=== PATIENT | male | born 1945 | race Caucasian/White ===

== ENCOUNTER → 2016-12-20 | Outpatient (CLI) | payer OTHER ==
--- NOTE | 2016-12-20 16:30 | MRI ---
History: Meniscus tear, right knee pain. Technique: Multiplanar, multi sequence MR imaging of the right knee was performed without contrast. Comparison: Radiographs of the right knee dated 07/08/2016. Findings: The anterior cruciate ligament is intact. There is thickening of the posterior cruciate ligament mid portion as seen on sagittal PD fat sat image 19, with intermediate signal compatible with a chronic sprain. There is an undersurface flap tear involving the medial meniscus at the posterior horn/body junction extending into the posterior horn. There is increased signal within the posterior horn lateral meniscus which is likely degenerative si gnal. There is thickening of the proximal aspect of the MCL measuring 11 mm transverse with mixed intermed iate signal which corresponds to ossification seen on the prior radiographs compatible with a chroni c high-grade MCL tear with Lisa-Stieda lesion and scarring. The iliotibial band is intact. The fibular collateral ligament and biceps femoris tendons are intact . There is a ganglion cyst which appears to be within layers of the lateral retinacula as seen on ax ial T2 fat sat image 13, series 401 where it measures up to 4.6 cm in AP dimension and 5 mm thicknes s by 4.5 cm craniocaudal seen on coronal PD fat sat image 15. This cyst extends inferiorly in along the superficial aspect of the fibular collateral ligament where it measured 2.1 cm AP by 6 mm in thi ckness by 4.6 cm craniocaudal there is mild edema along its posterior aspect tracking distally. The tendons of the gastrocnemius, seem urine oasis, and pes anserinus appear intact. There is severe osteoarthrosis of the tibia fibular articulation, with a ganglion cyst along its pos terior medial margin measuring 1.9 x 1.8 cm. The quadriceps and the patellar tendons are intact. There is a small joint effusion. There is moderate to severe tricompartmental osteoarthrosis. The patella is of normal morphology wit hout significant tilt or subluxation. 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 Grade 2/grade 3 chondromalacia noted in the medial and lateral femorotibial compartments. There is an indistinctness of the posterior lateral j oint capsule suggesting a remote capsular injury. Impression: 1. Under surface flap tear involving posterior horn/posterior body of the medial meniscus. Increased signal within the posterior horn of the lateral meniscus is felt to be due to degenerative signal. 2. Chronic sprain of the posterior cruciate ligament. 3. 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 4. Ganglion cyst within layers of the lateral retinaculum extending inferiorly along the surface of the fibular collateral ligament. 5. 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 6. Severe tibio-fibular osteoarthrosis with a ganglion cyst abutting the posterior margin of the carmine nt. 7. Small knee effusion. 8. Other findings as above Reported By:
== END | disposition home or self-care (01) ==
LOC: RAD 08:13
PROVIDERS: ATTEND Specialist
DX: S83.241A Other tear of medial meniscus, current injury, right knee, initial encounter (principal); S83.411A Sprain of medial collateral ligament of right knee, initial encounter; S83.521A Sprain of posterior cruciate ligament of right knee, initial encounter; M67.461 Ganglion, right knee; M17.11 Unilateral primary osteoarthritis, right knee; M25.461 Effusion, right knee; X58.XXXA Exposure to other specified factors, initial encounter
CPT/HCPCS: 73721